=== PATIENT | female | born 1945 | race Caucasian/White ===

== ENCOUNTER 2016-09-30 01:57 | Emergency (ER) | payer MEDICARE, BC ==
--- NOTE | ~2016-09-30 | CR63 ---
[facility]. [facility] A Service of [facility] & [facility] [place] RADIOLOGY TEXT RESULTS PATIENT: ALEKS ZENDEJAS LOCATION: SED : 47 UNIT #: [id number] AGE: [address]: Garth Balderas MD SEX: F ORDER DR: [id number] [place] [id number] E MR#: [id number] Acc #: [id number] NAME: ALEKS ZENDEJAS : 1945 SEX: F STUDY DATE/TIME: 09/30/2016 02:13 UNIT: SED ROOM: STUDY DESCRIPTION: CR Chest 2 View Attending Physician: Garth Balderas M.D. Ordering Physician: Garth Balderas M.D. Primary Care Physician: Lu Mathis MEDICAL IMAGING REPORT This report is preliminary unless electronic signature is present. EXAM Chest x-ray 09/30 0213 hours INDICATIONS Productive cough with wheezing and shortness of air for 5 days. History of hypertension. FINDINGS PA and lateral examination of the chest upright shows a good expansion of the parenchyma with a normal distribution of the pulmonary vascularity. There is no indication of congestion, effusion, infiltrate, tumor, or nodular density. The pleural reflections and diaphragmatic contours are normal. The cardiac silhouette and mediastinal anatomy is within normal limits. IMPRESSION Normal chest. Dictated by... Filipe Damico Jr., M.D. THIS IS AN ELECTRONICALLY VERIFIED REPORT Filipe Damico Jr., M.D. at 10/03/2016 7:22 AM Gissel TD: 09/30/2016 07:28 JOB #: [id number] MEDICAL IMAGING REPORT Page 1 of 1
== END 2016-09-30 03:42 | disposition home or self-care (01) ==
LOC: SED 01:57
DX: J20.9 Acute bronchitis, unspecified (principal); I10 Essential (primary) hypertension
CPT/HCPCS: 71020; 94640; 99284

== ENCOUNTER → 2016-12-13 | Outpatient (CLI) | payer MEDICARE, BC ==
--- NOTE | ~2016-12-13 | CR61 ---
[facility] A Service of [facility] RADIOLOGY TEXT RESULTS PATIENT: ALEKS ZENDEJAS LOCATION: [facility] : 47 UNIT #: [id number] AGE: [address]: Generic Doctor NOT IN SYSTEM SEX: F ORDER DR: [id number] [facility] [address] [place], [place] [address] [id number] O MR#: [id number] Acc #: [id number] NAME: ALEKS ZENDEJAS : 1945 SEX: F STUDY DATE/TIME: 12/13/2016 11:43 UNIT: [facility] ROOM: STUDY DESCRIPTION: CR Cervical Spine Min 5 Views Attending Physician: Generic Doctor Not In System Referring Physician: Generic Doctor Not In System Ordering Physician: Physician Non-Staff Primary Care Physician: Lu Mathis MEDICAL IMAGING REPORT This report is preliminary unless electronic signature is present EXAM Cervical series, 12/13/2016 INDICATION Arm and shoulder pain with weakness in the right arm. Struggles to raise the arm. Symptoms for a year but worse in the past 2 weeks. No known injury. Numbness and tingling on the right. TECHNIQUE Open mouth odontoid, lateral, frontal flexion and extension views were performed. No comparisons. FINDINGS Dens and lateral masses intact. Cervicothoracic junction intact. Bones are osteopenic. There is degenerative disc disease at C5-6 and C6-7. Soft tissues are unremarkable. Mild facet arthropathy in the gam-eq-gwopu cervical levels. Atherosclerotic carotid artery calcifications. Mild uncovertebral spurring in the vex-ly-pnimy cervical levels. Flexion and extension views demonstrate no acute fracture or malalignment. IMPRESSION Degenerative changes in the rpo-bq-cygjk cervical spine but no acute fracture or malalignment. Dictated by... Clem Nunez M.D. THIS IS AN ELECTRONICALLY VERIFIED REPORT Clem Nunez M.D. at 12/14/2016 9:17 AM YANCI/tom [facility] A Service of [facility] RADIOLOGY TEXT RESULTS PATIENT: ALEKS ZENDEJAS LOCATION: [facility] : 47 UNIT #: [id number] AGE: [address]: Generic Doctor NOT IN SYSTEM SEX: F ORDER DR: TD: 12/14/2016 00:12 JOB #: [id number] MEDICAL IMAGING REPORT Page 1 of 1 COPY
== END | disposition home or self-care (01) ==
LOC: CRAD 11:01
DX: M54.2 Cervicalgia (principal); M47.892 Other spondylosis, cervical region
CPT/HCPCS: 72050